=== PATIENT | female | born 1980 | race Two or more races ===

== ENCOUNTER 2020-11-15 14:20 | Emergency (ER) | payer SELFPAY ==
[~2020-11-15] VITALS: Ht 157.5 cm; Wt 49.9 kg
[2020-11-15] MEDS ORDERED: SODIUM CHLORIDE 0.9% 1,000 ML IV ONE ×2 (14:30)
[2020-11-15 14:37] VITALS: BP 102/70
[2020-11-15 16:05] LABS: Basophils # (auto) 0.1 10 ^3/uL (0-0.2); Eosinophils # (auto) 0 10 ^3/uL (0-0.8); Monocytes # (auto) 0.7 10 ^3/uL (0-1.3); Red Blood Cells 5.53 10^6/uL (4.0-5.20)
[2020-11-15 16:07] LABS: Basophils % (auto) 0.4 % (0.0-2.0); Eosinophils % (auto) 0.1 % (0.0-7.0); Hematocrit 45.1 % (36.0-46.0); Hemoglobin 14.2 g/dL (12.2-16.2); Lymphocytes # (auto) 2.6 10 ^3/uL (0.4-5.4); Lymphocytes % (auto) 20.5 % (10.0-50.0); Mean Corpuscular Hemoglobin 25.7 pg (28.0-32.0); Mean Corpuscular Hgb Conc. 31.6 g/dL (32.0-36.0); Mean Corpuscular Volume 81.6 fL (80.0-100.0); Monocytes % (auto) 5.3 % (0.0-12.0); Neutrophils # (auto) 9.3 10 ^3/uL (1.6-8.6); Neutrophils % (auto) 73.7 % (37.0-80.0); Red Cell Distribution Width 14.8 % (11.8-14.3); White Blood Cell 12.5 10^3/uL (4.4-10.8)
[2020-11-15 16:36] LABS: Albumin 3.8 g/dL (3.4-5.0); Anion Gap 9 (5-15); Blood Urea Nitrogen 18 mg/dL (7-18); Calcium 8.9 mg/dL (8.5-10.1); Carbon Dioxide 22 mmol/L (21-32); Chloride 109 mmol/L (98-107); Glucose 132 mg/dL (74-106); Potassium 3.2 mmol/L (3.5-5.1); Sodium 140 mmol/L (136-145)
[2020-11-15 16:41] LABS: Alanine Aminotransferase 31 U/L (13-56); Alkaline Phosphatase 87 U/L (45-117); Aspartate Aminotransferase 28 U/L (15-37); BUN/Creatinine Ratio 18.9; Bilirubin, Total 1.6 mg/dL (0.2-1.0); Blood Alcohol < 3.0 mg/dL (0-5); GFR African American 84 mL/min; GFR Non-African American 69 mL/min; Total Protein 8.8 g/dL (6.4-8.2)
== END 2020-11-15 23:16 | disposition left against medical advice (07) ==
LOC: ER 14:20 → EDBD 14:20 → ER 23:16
DX: F15.10 Other stimulant abuse, uncomplicated (principal); R53.1 Weakness
CPT/HCPCS: 36415; 71045; 80053; 80320; 85025; 93005